=== PATIENT | male | born 1990 | race Two or more races ===

== ENCOUNTER 2023-10-30 07:53 | Inpatient (IN) | payer MEDICAID ==
[~2023-10-30] VITALS: Ht 193 cm; Wt 88.2 kg
[2023-10-30] MEDS ORDERED: ZOLPIDEM TARTRATE 10 MG TABLET PO PRN (10:45)
[2023-10-30 11:16] LABS: COVID AG,FIA SOURCE NASAL SWAB
[2023-10-30 11:25] LABS: BASOPHILS % (AUTO) 1.5 % (0.0-2.0); EOSINOPHILS % (AUTO) 0.2 % (1.0-6.0); HEMATOCRIT 40.8 % (41-53); HEMOGLOBIN 13.9 g/dL (13.5-17.5); LYMPHOCYTES # (AUTO) 0.8 K/uL (1.0-4.8); LYMPHOCYTES % (AUTO) 22.8 % (22.0-44.0); MEAN CORPUSCULAR HGB CONC 34.1 G/dL (31.0-37.0); MEAN CORPUSCULAR VOLUME 88 fL (80-100); MONOCYTES # (AUTO) 0.4 K/uL (0.1-1.0); MONOCYTES % (AUTO) 12.8 % (2.0-9.0); NEUTROPHILS # (AUTO) 2.1 K/uL (1.8-7.7); NEUTROPHILS % (AUTO) 62.7 % (40.0-70.0); PLATELET COUNT (AUTO) 189 K/uL (150-450); RED BLOOD CELL COUNT(AUTO) 4.65 MIL/uL (4.50-5.90); RED CELL DISTRIBUTION WIDTH 14.1 % (11.5-14.5); WHITE BLOOD COUNT (AUTO) 3.4 K/uL (4.5-11.0)
[2023-10-30 11:27] LABS: APPEARANCE,URINE CLEAR (CLEAR); BILIRUBIN,URINE NEGATIVE (NEGATIVE); COLOR,URINE LIGHT YELLOW (YELLOW); GLUCOSE, URINE (UA) NEGATIVE (NEGATIVE); KETONES,URINE NEGATIVE (NEGATIVE); LEUKOCYTE ESTERASE ,URINE NEGATIVE (NEGATIVE); NITRATE,URINE NEGATIVE (NEGATIVE); OCCULT BLOOD,URINE NEGATIVE (NEGATIVE); PROTEIN,URINE NEGATIVE (NEGATIVE); SPECIFIC GRAVITIY, URINE 1.014 (1.003-1.030); UROBILINOGEN,URINE <=1.0 mg/dL (<=1.0)
[2023-10-30 11:35] LABS: SARS-COV2 (COVID) ANTIGEN,FIA Negative (Negative)
[2023-10-30 11:35] LABS: ANION GAP 7 mmol/L (8-16); CALCIUM, TOTAL 8.9 mg/dL (8.8-10.5); CARBON DIOXIDE 31 mmol/L (22-29); CHLORIDE 99 mmol/L (98-107); CREATININE 0.77 mg/dL (0.60-1.30); GLOMERULAR FILTR. RATE CALC > 60 mL/min (>60); GLUCOSE,RANDOM 104 mg/dL (70-110); POTASSIUM 3.6 mmol/L (3.5-5.1); SODIUM SERUM 137 mmol/L (136-145); UREA NITROGEN, BLOOD 8 mg/dL (7-18)
[2023-10-30 11:41] LABS: ALANINE AMINOTRANSFERASE 70 U/L (12-78); ALBUMIN 3.8 g/dL (3.4-5.0); ALKALINE PHOSPHATASE 125 U/L (46-116); ASPARTATE AMINOTRANSFERASE 59 U/L (15-37); BILIRUBIN,TOTAL 0.5 mg/dL (0.1-1.0); TOTAL PROTEIN, SERUM 8.2 g/dL (6.4-8.2)
[2023-10-30 11:46] LABS: ALCOHOL, BLOOD (SERUM) < 3 mg/dL (0-10)
[2023-10-30 11:50] LABS: RBC MORPHOLOGY COMMENT NORMAL RBC MORPH
[2023-10-30 12:04] LABS: ALCOHOL, URINE DRUG SCREEN NEGATIVE (NEGATIVE); AMPHET/METH SCREEN,URINE NEGATIVE (NEGATIVE); BARBITURATE SCREEN, URINE NEGATIVE (NEGATIVE); BENZODIAZEPINES SCREEN,URINE NEGATIVE (NEGATIVE); CANNABINOID SCREEN,URINE POSITIVE (NEGATIVE); COCAINE SCREEN,URINE NEGATIVE (NEGATIVE); METHADONE SCREEN, URINE NEGATIVE (NEGATIVE); OPIATE SCREEN,URINE NEGATIVE (NEGATIVE); PHENCYCLIDINE SCREEN,URINE NEGATIVE (NEGATIVE)
[2023-10-30] MEDS: HALOPERIDOL 5 MG TABLET PO PRN (15:18)
[2023-10-30] MEDS: LORazepam 2 MG TABLET PO PRN (15:18)
[2023-10-31 16:03] VITALS: BP 140/84; PULSE 70; RESP 18; TEMP 97.6; O2SAT 99
[2023-10-31] MEDS ORDERED: INFLUENZA VIRUS VACCINE QVS 2023-24 (6MO+)/PF 60 MCG/0.5 ML SYRINGE IM. ONE (16:45)
[2023-10-31] MEDS ORDERED: PNEUMOCOCCAL VACCINE POLYVALENT 0.5 ML SYRINGE [PPSV23] IM. ONE (16:45)
[2023-10-31] MEDS: BACITRACIN 28 GM OINTMENT TP SCH (18:48)
[2023-10-31 20:24] VITALS: BP 135/79; PULSE 75; RESP 18; TEMP 97.3; O2SAT 98
[2023-11-01] MEDS ORDERED: IBUPROFEN 400 MG TABLET PO PRN (04:30)
[2023-11-01] MEDS ORDERED: CloNIDine HCL 0.1 MG TABLET PO PRN (04:30)
[2023-11-01] MEDS ORDERED: GuaiFENesin/D-METHORPHAN [SUGAR-FREE] 200-20MG/10 ML SYRUP UDCUP PO PRN (04:30)
[2023-11-01] MEDS ORDERED: ONDANSETRON HCL 4 MG TABLET PO PRN (04:30)
[2023-11-01] MEDS ORDERED: ALBUTEROL SULFATE HFA 90 MCG/PUFF 8 GM INHALER IH PRN (04:30)
[2023-11-01] MEDS ORDERED: LOPERAMIDE HCL 2 MG CAPSULE PO PRN (04:30)
[2023-11-01] MEDS ORDERED: MAG HYDROX/ALUMINUM HYD/SIMETH ES 30 ML SUSPENSION UDCUP PO PRN (04:30)
[2023-11-01] MEDS ORDERED: NICOTINE 14 MG/24 HOUR PATCH TD PRN (04:30)
[2023-11-01] MEDS ORDERED: MAGNESIUM HYDROXIDE SUSPENSION 30 ML UDCUP PO PRN (04:30)
[2023-11-01] MEDS ORDERED: DOCUSATE SODIUM 100 MG CAPSULE PO PRN (04:30)
[2023-11-01] MEDS ORDERED: PETROLATUM,WHITE 28 GM JELLY TP PRN (04:30)
[2023-11-01] MEDS ORDERED: ACETAMINOPHEN 325 MG TABLET PO PRN (04:30)
[2023-11-01 08:37] VITALS: BP 124/65; PULSE 77; RESP 18; TEMP 98.2; O2SAT 100
[2023-11-01] MEDS: VENLAFAXINE HCL 150 MG ER CAPSULE PO SCH (12:21)
[2023-11-01] MEDS: TOPIRAMATE 25 MG TABLET PO SCH (12:21)
[2023-11-01 20:34] VITALS: BP 132/75; PULSE 73; RESP 18; TEMP 97.6; O2SAT 98
[2023-11-02 07:37] LABS: HEMOGLOBIN A1C 5.3 % (3.8-5.6)
[2023-11-02 07:47] LABS: THYROID STIMULATING HORMONE 0.98 uIU/mL (0.36-3.74)
[2023-11-02] MEDS ORDERED: VENL-68 PO (08:24)
[2023-11-02] MEDS ORDERED: TOPI25TA42 PO (08:25)
[2023-11-02] MEDS ORDERED: VENL150C5 PO (09:25)
[2023-11-02] MEDS ORDERED: TOPI25 PO (09:25)
[2023-11-02 10:59] VITALS: BP 122/84; PULSE 70; RESP 16; TEMP 98.3; O2SAT 98
== END 2023-11-02 10:10 | disposition home or self-care (01) | DRG 750 ==
LOC: EMS 07:55 → 3EC 10-31 15:20
PROVIDERS: ADMIT Psychiatry & Neurology Psychiatry; ATTEND Psychiatry & Neurology Psychiatry
PROC: GZHZZZZ Group Psychotherapy (ICD-10-PCS; principal; 2023-11-01)
PROC: GZ51ZZZ Individual Psychotherapy, Behavioral (ICD-10-PCS; 2023-11-01)
DX: F25.1 Schizoaffective disorder, depressive type (principal); R45.851 Suicidal ideations; F31.9 Bipolar disorder, unspecified; Z20.822 Contact with and (suspected) exposure to COVID-19; F41.9 Anxiety disorder, unspecified; Z79.899 Other long term (current) drug therapy
CPT/HCPCS: 80053; 80061; 80307; 81003; 83036; 84443; 85025; 99285; G0480

== ENCOUNTER 2023-11-22 10:31 | Inpatient (IN) | payer MEDICAID ==
[~2023-11-22] VITALS: Ht 180.3 cm; Wt 81.8 kg
[~2023-11-22 10:31] MED LIST: TOPI25 PO; TOPI25TA42 PO; VENL-68 PO; VENL150C5 PO
[2023-11-22] MEDS: BACITRACIN 0.9 GM PACKET OINTMENT TP ONE (11:09)
[2023-11-22 11:24] LABS: COVID AG,FIA SOURCE NASAL SWAB
[2023-11-22 11:32] LABS: BASOPHILS % (AUTO) 0.4 % (0.0-2.0); EOSINOPHILS % (AUTO) 0.7 % (1.0-6.0); HEMATOCRIT 38.7 % (41-53); LYMPHOCYTES % (AUTO) 19.9 % (22.0-44.0); MEAN CORPUSCULAR HEMOGLOBIN 29.8 pg (26.0-34.0); MEAN CORPUSCULAR HGB CONC 33.7 G/dL (31.0-37.0); MEAN CORPUSCULAR VOLUME 88 fL (80-100); MONOCYTES # (AUTO) 0.5 K/uL (0.1-1.0); MONOCYTES % (AUTO) 9.4 % (2.0-9.0); NEUTROPHILS # (AUTO) 3.3 K/uL (1.8-7.7); NEUTROPHILS % (AUTO) 69.6 % (40.0-70.0); PLATELET COUNT (AUTO) 201 K/uL (150-450); RED BLOOD CELL COUNT(AUTO) 4.38 MIL/uL (4.50-5.90); RED CELL DISTRIBUTION WIDTH 13.9 % (11.5-14.5); WHITE BLOOD COUNT (AUTO) 4.8 K/uL (4.5-11.0)
[2023-11-22 11:44] LABS: SARS-COV2 (COVID) ANTIGEN,FIA Negative (Negative)
[2023-11-22 11:45] LABS: ANION GAP 8 mmol/L (8-16); CALCIUM, TOTAL 8.4 mg/dL (8.8-10.5); CARBON DIOXIDE 27 mmol/L (22-29); CHLORIDE 105 mmol/L (98-107); CREATININE 0.83 mg/dL (0.60-1.30); GLOMERULAR FILTR. RATE CALC > 60 mL/min (>60); GLUCOSE,RANDOM 81 mg/dL (70-110); POTASSIUM 3.7 mmol/L (3.5-5.1); SODIUM SERUM 140 mmol/L (136-145); UREA NITROGEN, BLOOD 12 mg/dL (7-18)
[2023-11-22 11:47] LABS: ALCOHOL, BLOOD (SERUM) < 3 mg/dL (0-10)
[2023-11-22 11:51] LABS: ALANINE AMINOTRANSFERASE 29 U/L (12-78); ALBUMIN 3.5 g/dL (3.4-5.0); ALKALINE PHOSPHATASE 79 U/L (46-116); ASPARTATE AMINOTRANSFERASE 35 U/L (15-37); BILIRUBIN,TOTAL 0.4 mg/dL (0.1-1.0)
[2023-11-22 14:30] VITALS: BP 119/66; PULSE 57; TEMP 97.5; O2SAT 100
[2023-11-22] MEDS: BACITRACIN 28 GM OINTMENT TP SCH (16:56)
[2023-11-22 21:31] VITALS: RESP 16
[2023-11-23] MEDS ORDERED: DiphenhydrAMINE HCL 50 MG/ML VIAL ONE (08:50)
[2023-11-23] MEDS ORDERED: LORazepam 2 MG/ML VIAL ONE (08:50)
[2023-11-23] MEDS ORDERED: HALOPERIDOL LACTATE 5 MG/ML VIAL ONE (08:50)
[2023-11-23] MEDS: DiphenhydrAMINE HCL 50 MG/ML VIAL IM ONE ×2 (09:09→14:46)
[2023-11-23] MEDS: LORazepam 2 MG/ML VIAL IM ONE ×2 (09:09→14:47)
[2023-11-23] MEDS: HALOPERIDOL LACTATE 5 MG/ML VIAL IM ONE ×2 (09:10→14:46)
[2023-11-23 09:18] VITALS: BP 149/74; PULSE 96; RESP 18; TEMP 97.3; O2SAT 100
[2023-11-23] MEDS: RisperiDONE 1 MG TABLET PO SCH (10:45)
[2023-11-23] MEDS: TOPIRAMATE 25 MG TABLET PO SCH (10:45)
[2023-11-23] MEDS: VENLAFAXINE HCL 150 MG ER CAPSULE PO SCH (10:45)
[2023-11-23] MEDS ORDERED: GuaiFENesin/D-METHORPHAN [SUGAR-FREE] 200-20MG/10 ML SYRUP UDCUP PO PRN (11:15)
[2023-11-23] MEDS ORDERED: ONDANSETRON HCL 4 MG TABLET PO PRN (11:15)
[2023-11-23] MEDS ORDERED: DOCUSATE SODIUM 100 MG CAPSULE PO PRN (11:15)
[2023-11-23] MEDS ORDERED: LOPERAMIDE HCL 2 MG CAPSULE PO PRN (11:15)
[2023-11-23] MEDS ORDERED: IBUPROFEN 400 MG TABLET PO PRN (11:15)
[2023-11-23] MEDS ORDERED: PETROLATUM,WHITE 28 GM JELLY TP PRN (11:15)
[2023-11-23] MEDS ORDERED: MAG HYDROX/ALUMINUM HYD/SIMETH ES 30 ML SUSPENSION UDCUP PO PRN (11:15)
[2023-11-23] MEDS ORDERED: CloNIDine HCL 0.1 MG TABLET PO PRN (11:15)
[2023-11-23] MEDS ORDERED: ACETAMINOPHEN 325 MG TABLET PO PRN (11:15)
[2023-11-23] MEDS ORDERED: NICOTINE 14 MG/24 HOUR PATCH TD PRN (11:15)
[2023-11-23] MEDS ORDERED: ALBUTEROL SULFATE HFA 90 MCG/PUFF 8 GM INHALER IH PRN (11:15)
[2023-11-23] MEDS ORDERED: MAGNESIUM HYDROXIDE SUSPENSION 30 ML UDCUP PO PRN (11:15)
[2023-11-23 20:08] VITALS: BP 126/57; PULSE 98; TEMP 98; O2SAT 98
[2023-11-24 08:12] VITALS: BP 124/66; PULSE 98; RESP 18; TEMP 98.4; O2SAT 97
[2023-11-24 20:11] VITALS: BP 131/77; PULSE 72; TEMP 98; O2SAT 94
[2023-11-25 08:13] VITALS: BP 140/91; PULSE 76; RESP 18; TEMP 97.8; O2SAT 96
[2023-11-25] MEDS ORDERED: TOPI25 PO (09:53)
[2023-11-25] MEDS ORDERED: RISP-31 PO (09:54)
== END 2023-11-25 10:58 | disposition home or self-care (01) | DRG 750 ==
LOC: EMS 10:31 → B3A 13:06
PROVIDERS: ADMIT Psychiatry & Neurology Child & Adolescent Psychiatry; ATTEND Psychiatry & Neurology Child & Adolescent Psychiatry
DX: F25.0 Schizoaffective disorder, bipolar type (principal); D64.9 Anemia, unspecified; F12.90 Cannabis use, unspecified, uncomplicated; Z20.822 Contact with and (suspected) exposure to COVID-19; F31.9 Bipolar disorder, unspecified; F41.9 Anxiety disorder, unspecified; R03.0 Elevated blood-pressure reading, without diagnosis of hypertension
CPT/HCPCS: 80053; 85025; 99285; G0480; J1200; J1630; J2060

== ENCOUNTER 2023-12-02 22:01 | Emergency (ER) | payer MEDICAID ==
[~2023-12-02 22:01] MED LIST changes: +RISP-31 PO; -TOPI25TA42 PO; -VENL-68 PO
[2023-12-02 23:16] LABS: COVID AG,FIA SOURCE NASAL SWAB
[2023-12-02 23:29] LABS: BASOPHILS % (AUTO) 0.2 % (0.0-2.0); EOSINOPHILS % (AUTO) 0.6 % (1.0-6.0); HEMATOCRIT 40.9 % (41-53); HEMOGLOBIN 13.6 g/dL (13.5-17.5); LYMPHOCYTES # (AUTO) 1.5 K/uL (1.0-4.8); LYMPHOCYTES % (AUTO) 24.9 % (22.0-44.0); MEAN CORPUSCULAR HEMOGLOBIN 29.5 pg (26.0-34.0); MEAN CORPUSCULAR HGB CONC 33.2 G/dL (31.0-37.0); MEAN CORPUSCULAR VOLUME 89 fL (80-100); MONOCYTES # (AUTO) 0.5 K/uL (0.1-1.0); MONOCYTES % (AUTO) 7.7 % (2.0-9.0); NEUTROPHILS % (AUTO) 66.6 % (40.0-70.0); PLATELET COUNT (AUTO) 217 K/uL (150-450); WHITE BLOOD COUNT (AUTO) 5.9 K/uL (4.5-11.0)
[2023-12-02 23:34] LABS: SARS-COV2 (COVID) ANTIGEN,FIA Negative (Negative)
[2023-12-02 23:34] LABS: ANION GAP 11 mmol/L (8-16); CARBON DIOXIDE 28 mmol/L (22-29); CHLORIDE 101 mmol/L (98-107); CREATININE 0.78 mg/dL (0.60-1.30); GLOMERULAR FILTR. RATE CALC > 60 mL/min (>60); GLUCOSE,RANDOM 87 mg/dL (70-110); POTASSIUM 3.3 mmol/L (3.5-5.1); SODIUM SERUM 140 mmol/L (136-145); UREA NITROGEN, BLOOD 10 mg/dL (7-18)
[2023-12-02 23:39] LABS: ALANINE AMINOTRANSFERASE 20 U/L (12-78); ALBUMIN 3.8 g/dL (3.4-5.0); ALKALINE PHOSPHATASE 86 U/L (46-116); ASPARTATE AMINOTRANSFERASE 20 U/L (15-37); BILIRUBIN,TOTAL 0.4 mg/dL (0.1-1.0); TOTAL PROTEIN, SERUM 7.7 g/dL (6.4-8.2)
[2023-12-02 23:46] LABS: ALCOHOL, BLOOD (SERUM) < 3 mg/dL (0-10)
[2023-12-02 23:56] LABS: PH,URINE DRUG SCREEN 7.5 (5.0-8.0)
[2023-12-03 00:22] LABS: ALCOHOL, URINE DRUG SCREEN NEGATIVE (NEGATIVE); AMPHET/METH SCREEN,URINE POSITIVE (NEGATIVE); BARBITURATE SCREEN, URINE NEGATIVE (NEGATIVE); BENZODIAZEPINES SCREEN,URINE NEGATIVE (NEGATIVE); CANNABINOID SCREEN,URINE POSITIVE (NEGATIVE); COCAINE SCREEN,URINE NEGATIVE (NEGATIVE); METHADONE SCREEN, URINE NEGATIVE (NEGATIVE); OPIATE SCREEN,URINE NEGATIVE (NEGATIVE); PHENCYCLIDINE SCREEN,URINE NEGATIVE (NEGATIVE)
[2023-12-03 02:00] VITALS: BP 135/75; PULSE 100; RESP 19; TEMP 98.3
[2023-12-03] MEDS: POTASSIUM CHLORIDE 10% 40 MEQ/30 ML LIQUID UDCUP PO ONE (03:20)
== END 2023-12-03 03:53 | disposition home or self-care (01) ==
LOC: EMS 22:02
DX: S00.83XA Contusion of other part of head, initial encounter (principal); F25.9 Schizoaffective disorder, unspecified; E87.6 Hypokalemia; F15.10 Other stimulant abuse, uncomplicated; F41.9 Anxiety disorder, unspecified; F31.9 Bipolar disorder, unspecified; F12.90 Cannabis use, unspecified, uncomplicated; Z20.822 Contact with and (suspected) exposure to COVID-19; X58.XXXA Exposure to other specified factors, initial encounter; Y93.89 Activity, other specified; Y92.89 Other specified places as the place of occurrence of the external cause; Y99.8 Other external cause status
CPT/HCPCS: 99284; 87426; 80053; 85025; 36415; 80307; 70450; G0480

== ENCOUNTER 2023-12-03 07:07 | Inpatient (IN) | payer MEDICAID ==
[~2023-12-03] VITALS: Ht 193 cm; Wt 91.2 kg
[2023-12-03 12:16] LABS: BASOPHILS % (AUTO) 0.5 % (0.0-2.0); EOSINOPHILS % (AUTO) 0.3 % (1.0-6.0); HEMATOCRIT 46.1 % (41-53); HEMOGLOBIN 15.4 g/dL (13.5-17.5); LYMPHOCYTES # (AUTO) 1.3 K/uL (1.0-4.8); LYMPHOCYTES % (AUTO) 22.4 % (22.0-44.0); MEAN CORPUSCULAR HEMOGLOBIN 29.7 pg (26.0-34.0); MEAN CORPUSCULAR HGB CONC 33.5 G/dL (31.0-37.0); MEAN CORPUSCULAR VOLUME 89 fL (80-100); MONOCYTES # (AUTO) 0.3 K/uL (0.1-1.0); MONOCYTES % (AUTO) 5.4 % (2.0-9.0); NEUTROPHILS % (AUTO) 71.4 % (40.0-70.0); PLATELET COUNT (AUTO) 254 K/uL (150-450); RED BLOOD CELL COUNT(AUTO) 5.19 MIL/uL (4.50-5.90); RED CELL DISTRIBUTION WIDTH 13.9 % (11.5-14.5); WHITE BLOOD COUNT (AUTO) 5.6 K/uL (4.5-11.0)
[2023-12-03 12:23] LABS: ANION GAP 11 mmol/L (8-16); CALCIUM, TOTAL 9.2 mg/dL (8.8-10.5); CARBON DIOXIDE 28 mmol/L (22-29); CHLORIDE 99 mmol/L (98-107); CREATININE 0.76 mg/dL (0.60-1.30); GLOMERULAR FILTR. RATE CALC > 60 mL/min (>60); GLUCOSE,RANDOM 93 mg/dL (70-110); POTASSIUM 3.1 mmol/L (3.5-5.1); SODIUM SERUM 138 mmol/L (136-145); UREA NITROGEN, BLOOD 9 mg/dL (7-18)
[2023-12-03 12:34] LABS: ALANINE AMINOTRANSFERASE 27 U/L (12-78); ALBUMIN 4.5 g/dL (3.4-5.0); ALKALINE PHOSPHATASE 90 U/L (46-116); ASPARTATE AMINOTRANSFERASE 25 U/L (15-37); BILIRUBIN,TOTAL 0.9 mg/dL (0.1-1.0); TOTAL PROTEIN, SERUM 8.8 g/dL (6.4-8.2)
[2023-12-03 12:50] LABS: ALCOHOL, BLOOD (SERUM) < 3 mg/dL (0-10)
[2023-12-03] MEDS: LORazepam 2 MG/ML VIAL IM ONE (22:21)
[2023-12-03] MEDS: HALOPERIDOL LACTATE 5 MG/ML VIAL IM ONE (22:21)
[2023-12-03] MEDS: DiphenhydrAMINE HCL 50 MG/ML VIAL IM ONE (22:21)
[2023-12-03] MEDS ORDERED: ZOLPIDEM TARTRATE 10 MG TABLET PO PRN (23:15)
[2023-12-04] MEDS: POTASSIUM CHLORIDE 20 MEQ ER TABLET PO ONE (03:43)
[2023-12-04 03:48] LABS: COVID AG,FIA SOURCE NASAL SWAB
[2023-12-04 03:51] LABS: SARS-COV2 (COVID) ANTIGEN,FIA Negative (Negative)
[2023-12-04 05:22] VITALS: BP 128/67; PULSE 73; RESP 17; TEMP 97.9; O2SAT 98
[2023-12-04] MEDS ORDERED: MAGNESIUM HYDROXIDE SUSPENSION 30 ML UDCUP PO PRN (07:45)
[2023-12-04] MEDS ORDERED: IBUPROFEN 400 MG TABLET PO PRN (07:45)
[2023-12-04] MEDS ORDERED: GuaiFENesin/D-METHORPHAN [SUGAR-FREE] 200-20MG/10 ML SYRUP UDCUP PO PRN (07:45)
[2023-12-04] MEDS ORDERED: MAG HYDROX/ALUMINUM HYD/SIMETH ES 30 ML SUSPENSION UDCUP PO PRN (07:45)
[2023-12-04] MEDS ORDERED: DOCUSATE SODIUM 100 MG CAPSULE PO PRN (07:45)
[2023-12-04] MEDS ORDERED: ACETAMINOPHEN 325 MG TABLET PO PRN (07:45)
[2023-12-04] MEDS ORDERED: CloNIDine HCL 0.1 MG TABLET PO PRN (07:45)
[2023-12-04] MEDS ORDERED: PETROLATUM,WHITE 28 GM JELLY TP PRN (07:45)
[2023-12-04] MEDS ORDERED: ONDANSETRON HCL 4 MG TABLET PO PRN (07:45)
[2023-12-04] MEDS ORDERED: NICOTINE 14 MG/24 HOUR PATCH TD PRN (07:45)
[2023-12-04] MEDS ORDERED: LOPERAMIDE HCL 2 MG CAPSULE PO PRN (07:45)
[2023-12-04] MEDS ORDERED: ALBUTEROL SULFATE HFA 90 MCG/PUFF 8 GM INHALER IH PRN (07:45)
[2023-12-04] MEDS: HALOPERIDOL 5 MG TABLET PO PRN (08:12)
[2023-12-04] MEDS: LORazepam 1 MG TABLET PO PRN (08:12)
[2023-12-04 08:40] VITALS: BP 129/65; PULSE 60; RESP 16; TEMP 98.9; O2SAT 100
[2023-12-04] MEDS: VENLAFAXINE HCL 150 MG ER CAPSULE PO SCH (09:58)
[2023-12-04] MEDS: TOPIRAMATE 25 MG TABLET PO SCH (09:58)
[2023-12-04] MEDS: RisperiDONE 2 MG TABLET PO SCH (09:58)
[2023-12-04 20:14] VITALS: BP 127/84; PULSE 94; TEMP 98; O2SAT 98
[2023-12-05 08:01] VITALS: RESP 18
[2023-12-06 08:08] VITALS: BP 140/70; PULSE 90; RESP 18; TEMP 98.3; O2SAT 100
[2023-12-06 08:52] LABS: HEMOGLOBIN A1C 5.1 % (3.8-5.6)
[2023-12-06 09:04] LABS: CHOL/HDL RATIO 2.4 (4.2-7.3); POTASSIUM 4.1 mmol/L (3.5-5.1); THYROID STIMULATING HORMONE 0.4 uIU/mL (0.36-3.74)
[2023-12-06 09:08] LABS: APPEARANCE,URINE CLEAR (CLEAR); BILIRUBIN,URINE NEGATIVE (NEGATIVE); COLOR,URINE LIGHT YELLOW (YELLOW); GLUCOSE, URINE (UA) NEGATIVE (NEGATIVE); KETONES,URINE NEGATIVE (NEGATIVE); LEUKOCYTE ESTERASE ,URINE NEGATIVE (NEGATIVE); NITRATE,URINE NEGATIVE (NEGATIVE); OCCULT BLOOD,URINE NEGATIVE (NEGATIVE); PH,URINE 7.5 (5.0-8.0); PH,URINE DRUG SCREEN 7.5 (5.0-8.0); PROTEIN,URINE NEGATIVE (NEGATIVE); SPECIFIC GRAVITIY, URINE 1.009 (1.003-1.030); UROBILINOGEN,URINE <=1.0 mg/dL (<=1.0)
[2023-12-06 09:16] LABS: ALCOHOL, URINE DRUG SCREEN NEGATIVE (NEGATIVE); AMPHET/METH SCREEN,URINE NEGATIVE (NEGATIVE); BARBITURATE SCREEN, URINE NEGATIVE (NEGATIVE); BENZODIAZEPINES SCREEN,URINE NEGATIVE (NEGATIVE); CANNABINOID SCREEN,URINE POSITIVE (NEGATIVE); COCAINE SCREEN,URINE NEGATIVE (NEGATIVE); METHADONE SCREEN, URINE NEGATIVE (NEGATIVE); OPIATE SCREEN,URINE NEGATIVE (NEGATIVE); PHENCYCLIDINE SCREEN,URINE NEGATIVE (NEGATIVE)
[2023-12-06 20:14] VITALS: BP 130/78; PULSE 64; TEMP 97.8; O2SAT 96
[2023-12-07 08:28] VITALS: RESP 18
[2023-12-07 08:59] LABS: CHOL/HDL RATIO 2.6 (4.2-7.3); POTASSIUM 3.9 mmol/L (3.5-5.1); THYROID STIMULATING HORMONE 0.79 uIU/mL (0.36-3.74)
== END 2023-12-07 15:00 | disposition left against medical advice (07) | DRG 750 ==
LOC: EMS 07:14 → B3A 12-04 00:43
PROVIDERS: ADMIT Psychiatry & Neurology Psychiatry; ATTEND Psychiatry & Neurology Child & Adolescent Psychiatry
PROC: GZHZZZZ Group Psychotherapy (ICD-10-PCS; principal; 2023-12-07)
PROC: GZ51ZZZ Individual Psychotherapy, Behavioral (ICD-10-PCS; 2023-12-07)
DX: F25.0 Schizoaffective disorder, bipolar type (principal); R45.851 Suicidal ideations; Z20.822 Contact with and (suspected) exposure to COVID-19; E87.6 Hypokalemia; F15.10 Other stimulant abuse, uncomplicated; Z79.899 Other long term (current) drug therapy; Z53.29 Procedure and treatment not carried out because of patient's decision for other reasons
CPT/HCPCS: 80053; 80061; 80307; 81003; 83036; 84132; 84443; 85025; G0480; J1200; J1630; J2060